=== PATIENT | male | born 1950 | race Caucasian/White ===

== ENCOUNTER 2020-01-18 12:58 | Emergency (ER) | payer MEDICARE ==
[2020-01-18] MEDS ORDERED: SODIUM CHLORIDE 0.9% 500ML 500 ML IV ONE (15:19)
== END 2020-01-18 19:00 | disposition home or self-care (01) ==
LOC: EDH 12:58
DX: I99.8 Other disorder of circulatory system (principal); R42 Dizziness and giddiness; E11.9 Type 2 diabetes mellitus without complications; Z87.891 Personal history of nicotine dependence
CPT/HCPCS: 36415; 70450; 71045; 80053; 82550; 84484 ×2; 85025; 85610; 85730; 93005 ×2; 99285; J7040

== ENCOUNTER → 2024-01-01 | Outpatient (CLI) | payer OTHER ==
[~2024-01-01] MED LIST: ASPI-1197 PO; LISI1TAB53 PO; METF-446 PO
== END | disposition home or self-care (01) ==
LOC: SHCH 13:23
PROVIDERS: ATTEND Internal Medicine Cardiovascular Disease
DX: I65.23 Occlusion and stenosis of bilateral carotid arteries (principal); I70.203 Unspecified atherosclerosis of native arteries of extremities, bilateral legs
CPT/HCPCS: 93880; 93925

== ENCOUNTER → 2024-01-15 | Outpatient (CLI) | payer OTHER | END | disposition home or self-care (01) | LOC: SHCH 10:22 | PROVIDERS: ATTEND Internal Medicine Cardiovascular Disease | DX: I08.0 Rheumatic disorders of both mitral and aortic valves (principal); I25.10 Atherosclerotic heart disease of native coronary artery without angina pectoris | CPT/HCPCS: 93306 ==